=== PATIENT | female | born 1965 | race Two or more races ===

== ENCOUNTER 2020-08-01 09:33 | Emergency (ER) | payer OTHER ==
--- NOTE | 2020-08-01 10:27 | EDM.PDOC ---
ED HPI GENERAL MEDICAL PROBLEM - General Chief Complaint: General Stated Complaint: LIGHTHEADED/DIZZY/HEADACHE Time Seen by Provider: 08/01/20 09:44 Source of Information: Reports: Patient History Limitations: Reports: No Limitations - History of Present Illness INITIAL COMMENTS - FREE TEXT/NARRATIVE: 54-year-old female presents to the emergency department with complaints of mansfield dden onset severe headache in the base of her skull. Patient she states she was at work this morning when she developed a headache, dizziness, nausea, light sensitivity, and white spots in her vision and worsening tinnitus. States that the pain is constant at the base of her skull and she describes it as feeling like her head is going to explode. Patient states that she developed tinnitus approximately a year ago and has had intermittent headaches but has not seen her primary care physician to have this evaluated. She states that she does not have a history of migraine headache. She does not have a history of hypertension. Patient states her only medical history is asthma for which she takes a rescue inhaler as needed. She does admit to occasional marijuana use due to chronic back pain and sciatica. States that she last used about 24 hours ago. Posterior Headache Pain Score (Numeric/FACES): 8 - Related Data Allergies Allergy/AdvReac Type Severity Reaction Status Date / Time Penicillins Allergy Intermediate Hives Verified 08/01/20 09:47 animal dander Allergy Rash Verified 08/01/20 10:12 grass pollen Allergy Rash Verified 08/01/20 10:12 Influenza Virus Vaccines Allergy Anaphylactic Verified 08/01/20 10:12 Shock latex Allergy Hives Verified 08/01/20 10:12 Home Meds: Home Meds EPINEPHrine [Epinephrine] 0.3 mg IM ASDIRECTED PRN 08/01/20 [History] Levalbuterol Tartrate [Xopenex HFA] 45 mcg INH ASDIRECTED PRN 08/01/20 [History] Past Medical History HEENT History: Reports: Impaired Vision, Macular Degeneration Cardiovascular History: Reports: Syncope Respiratory History: Reports: Asthma BAIT MAN History: Reports: Musculoskeletal History: Reports: Back Pain, Chronic, Fracture Neurological History: Reports: Vertigo Endocrine/Metabolic History: Reports: Obesity/BMI 30+ Hematologic History: Reports: Anemia Dermatologic History: Reports: Eczema - Infectious Disease History Infectious Disease History: Reports: Chicken Pox Other Infectious Disease History: latent TB - Past Surgical History Other Musculoskeletal Surgeries/Procedures:: right foot surgery Oncologic Surgical History: Reports: Biopsy of Breast Social & Family History - Family History Family Medical History: No Pertinent Family History - Tobacco Use Tobacco Use Status *Q: Former Tobacco User Used Tobacco, but Quit: Yes Month/Year Tobacco Last Used: 05/1959 - Caffeine Use Caffeine Use: Reports: Coffee - Recreational Drug Use Recreational Drug Use: No ED ROS GENERAL - Review of Systems Review Of Systems: See Below Constitutional: Reports: Diaphoresis (with the onset of headache). Denies: Fever, Chills HEENT: Reports: Glasses, Vertigo, Vision Change (photophobia, "white spots in her vision") Respiratory: Reports: No Symptoms Cardiovascular: Reports: No Symptoms Endocrine: Reports: No Symptoms GI/Abdominal: Reports: No Symptoms : Reports: No Symptoms Musculoskeletal: Reports: No Symptoms Skin: Reports: No Symptoms Neurological: Reports: Dizziness (vertigo), Headache. Denies: Confusion, Numbness, Paresthesia, Seizure, Syncope, Tingling Psychiatric: Reports: No Symptoms Hematologic/Lymphatic: Reports: No Symptoms Immunologic: Reports: No Symptoms ED EXAM, GENERAL - Physical Exam Exam: See Below Exam Limited By: No Limitations General Appearance: Alert, WD/WN, Mild Distress Eye Exam: Bilateral Eye: EOMI Ears: Normal External Exam, Hearing Grossly Normal, Other (tinnitus) Nose: Normal Inspection Throat/Mouth: Normal Inspection, Normal Lips, Normal Voice, No Airway Compromise Head: Atraumatic, Normocephalic Neck: Normal Inspection, Supple, Non-Tender, Full Range of Motion Respiratory/Chest: No Respiratory Distress, Lungs Clear, Normal Breath Sounds, No Accessory Muscle Use, Chest Non-Tender Cardiovascular: Normal Peripheral Pulses, Regular Rate, Rhythm, No Edema, No Murmur Peripheral Pulses: 2+: Radial (L), Radial (R) GI/Abdominal: Normal Bowel Sounds, Soft, Non-Tender, No Distention (Female) Exam: Deferred Rectal (Female) Exam: Deferred Back Exam: Normal Inspection, Full Range of Motion Extremities: Normal Inspection, Normal Range of Motion, Non-Tender, No Pedal Edema, Normal Capillary Refill Neurological: Alert, Oriented, Normal Cognition. No: Normal Gait (unsteady-pt states that she has chronic back pain with sciatica on the left side) Psychiatric: Normal Affect, Normal Mood Skin Exam: Warm, Dry, Intact, Normal Color, No Rash Lymphatic: No Adenopathy Course - Vital Signs Text/Narrative:: 54 year old female with complaints of severe sudden onset headache at the base of her skull. 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 Associated symptoms are diaphoresis, photophobia, vertigo, white spots in her vision, nausea and feeling as though she is going to pass out. She denies any significant medical history other than asthma for which she takes a rescue inhaler as needed and a 1 year history of tinnitus. Complete neuro exam was unremarkable. Was unable to visualize the patients pupils however due to severe light sensitivity. Last Recorded V/S: Last Vital Signs Temp 97.2 F 08/01/20 09:43 Pulse 60 08/01/20 09:43 Resp 14 08/01/20 09:43 BP 135/71 08/01/20 09:43 Pulse Ox 98 08/01/20 09:43 - Orders/Labs/Meds Orders: Active Orders 24 hr Category Date Time Status Sodium Chloride 0.9% [Saline Flush] Med 08/01/20 10:01 Active 10 ml FLUSH ASDIRECTED PRN Saline Lock Insert [OM.PC] Stat Oth 08/01/20 10:01 Ordered Medication Orders Sodium Chloride (Sodium Chloride 0.9% 10 Ml Syringe) 10 ml FLUSH ASDIRECTED PRN PRN Reason: Keep Vein Open Last Admin: 08/01/20 11:09 Dose: 10 ml Documented by: ARCHIE Labs: Laboratory Tests 08/01/20 08/01/20 Range/Units 10:20 10:20 WBC 7.51 (3.98-10.04) K/mm3 RBC 5.29 H (3.98-5.22) M/mm3 Hgb 14.6 (11.2-15.7) gm/dl Hct 46.2 H (34.1-44.9) % MCV 87.3 (79.4-94.8) fl MCH 27.6 (25.6-32.2) pg MCHC 31.6 L (32.2-35.5) g/dl RDW Std Deviation 46.6 H (36.4-46.3) fL Plt Count 238 (182-369) K/mm3 MPV 10.8 (9.4-12.3) fl Neut % (Auto) 63.7 (34.0-71.1) % Lymph % (Auto) 23.7 (19.3-51.7) % [place] % (Auto) 7.1 (4.7-12.5) % Eos % (Auto) 5.1 (0.7-5.8) Baso % (Auto) 0.3 (0.1-1.2) % Neut # (Auto) 4.79 (1.56-6.13) K/mm3 Lymph # (Auto) 1.78 (1.18-3.74) K/mm3 [place] # (Auto) 0.53 H (0.24-0.36) K/mm3 Eos # (Auto) 0.38 H (0.04-0.36) K/mm3 Baso # (Auto) 0.02 (0.01-0.08) K/mm3 Sodium 142 (136-145) mEq/L Potassium 4.7 (3.5-5.1) mEq/L Chloride 105 (98-107) mEq/L Carbon Dioxide 30 (21-32) mEq/L Anion Gap 11.7 (5-15) BUN 10 (7-18) mg/dL Creatinine 0.8 (0.55-1.02) mg/dL Est Cr Clr Drug Dosing 59.96 mL/min Estimated GFR (MDRD) > 60 (>60) mL/min BUN/Creatinine Ratio 12.5 L (14-18) Glucose 95 (74-106) mg/dL Calcium 9.3 (8.5-10.1) mg/dL Magnesium 2.0 (1.8-2.4) mg/dl Total Bilirubin 0.3 (0.2-1.0) mg/dL AST 27 (15-37) U/L ALT 37 (14-59) U/L Alkaline Phosphatase 126 H (46-116) U/L Troponin I < 0.017 (0.00-0.056) ng/mL C-Reactive Protein 1.2 H* (<1.0) mg/dL Total Protein 8.2 (6.4-8.2) g/dl Albumin 3.7 (3.4-5.0) g/dl Globulin 4.5 gm/dL Albumin/Globulin Ratio 0.8 L (1-2) Meds: Medications Generic Name Dose Route Start Last Admin Trade Name Deny PRN Reason Stop Dose Admin Sodium Chloride 10 ml 08/01/20 10:01 08/01/20 11:09 Sodium Chloride 0.9% 10 Ml Syringe FLUSH 10 ml ASDIRECTED PRN Administration Keep Vein Open Discontinued Medications Generic Name Dose Route Start Last Admin Trade Name Deny PRN Reason Stop Dose Admin Diphenhydramine HCl 25 mg 08/01/20 10:32 08/01/20 11:05 Diphenhydramine 50 Mg/Ml Sdv IVPUSH 08/01/20 10:33 25 mg ONETIME ONE Administration Ketorolac Tromethamine 30 mg 08/01/20 10:32 08/01/20 11:07 Ketorolac 30 Mg/Ml Sdv IVPUSH 08/01/20 10:33 30 mg ONETIME ONE Administration Metoclopramide HCl 5 mg 08/01/20 10:32 08/01/20 11:03 Metoclopramide 10 Mg/2 Ml Sdv IVPUSH 08/01/20 10:33 5 mg ONETIME ONE Administration - Re-Assessments/Exams Free Text/Narrative Re-Assessment/Exam: 08/01/20 10:[address] radiologist impression: Nothing acute is seen on noncontrast head CT. 08/01/20 10:55 I have ordered benadryl, toradol, and reglan. I feel the patient is having a migraine so we will see if this helps. 08/01/20 11:41 Labs reveal a WBC of 7.51, hemoglobin 14.6, hematocrit 46.2, chemistry is essentially unremarkable other than alk phos 126, troponin less than 0.017, C- reactive protein 1.2. Patient states that headache pain, vertigo, photophobia and tinnitus are significantly better. We will allow her to rest for a bit longer and then have the nursing staff ambulate her as they did stay she was kind of unsteady on her feet prior to being medicated. 08/01/20 12:02 Nursing staff ambulated the patient and report that she is much more steady on her feet and states that she is ready to go home. Pt will be discharged with recommendations that she follow up with her primary care provider in the next couple of weeks. Departure - Departure Time of Disposition: 12:03 Disposition: Home, Self-Care 01 Condition: Good Clinical Impression: Migraine Qualifiers: Migraine type: with aura Status migrainosus presence: without status migrainosus Intractability: not intractable Qualified Code(s): G43.109 - Migraine with aura, not intractable, without status migrainosus - Discharge Information Instructions: Migraine Headache, [id number] Referrals: PCP,None [Primary Care Provider] - Luna Escobar PA-C [Ordering Only Provider] - Forms: ED Department Discharge Additional Instructions: You were seen in the emergency department today with complaints of sudden onset severe headache with dizziness, worsening ringing in the ears, nausea, and sensitivity to light. Labs and a CT of the head were completed to rule out stroke and these were negative. You likely had a migraine headache. You were given medications to treat them and the headache was significantly better after treatment. Ambulation was also more steady after treatment. Recommend that you follow up with Luna Escobar in the next couple of weeks for the evaluation of your ringing in your ears as you likely need to see an ENT specialist for evaluation. Should your condition worsen or change, do not hesitate to return to the ED. Sepsis Event Note (ED) - Evaluation Sepsis Screening Result: No Definite Risk - Focused Exam Vital Signs: Vital Signs Temp Pulse Resp BP Pulse Ox 08/01/20 09:43 97.2 F 60 14 135/71 98 - My Orders Last 24 Hours: My Active Orders 08/01/20 10:01 Sodium Chloride 0.9% [Saline Flush] 10 ml FLUSH ASDIRECTED PRN Saline Lock Insert [OM.PC] Stat - Assessment/Plan Last 24 Hours: My Active Orders 08/01/20 10:01 Sodium Chloride 0.9% [Saline Flush] 10 ml FLUSH ASDIRECTED PRN Saline Lock Insert [OM.PC] Stat
--- NOTE | 2020-08-01 10:37 | CT ---
Head CT Technique: Multiple axial sections through the brain were obtained. Intravenous contrast was not utilized. Reconstructed coronal and sagittal images were obtained. Findings: Ventricles along with basal cisterns and sulci over the convexities are within normal limits for the patient's age. No abnormal parenchymal densities are seen. No evidence of intracranial hemorrhage. No midline shift or mass-effect is appreciated. Bone window settings were reviewed. Visualized mastoid and paranasal sinuses show nothing acute. No acute calvarial finding is appreciated. Impression: 1. Nothing acute is seen on noncontrast head CT exam. Diagnostic code #1
[2020-08-01] MEDS: Metoclopramide 10 MG/2 ML SDV IVPUSH ONE (11:03)
[2020-08-01] MEDS: diphenhydrAMINE 50 MG/ML SDV IVPUSH ONE (11:05)
[2020-08-01] MEDS: Ketorolac 30 MG/ML SDV IVPUSH ONE (11:07)
[2020-08-01] MEDS: Sodium Chloride 0.9% 10 ML Syringe FLUSH PRN (11:09)
== END 2020-08-01 12:38 | disposition home or self-care (01) ==
LOC: JD.ED 09:33
DX: G43.109 Migraine with aura, not intractable, without status migrainosus (principal); J45.909 Unspecified asthma, uncomplicated; E66.9 Obesity, unspecified; Z88.0 Allergy status to penicillin; Z91.048 Other nonmedicinal substance allergy status; Z88.7 Allergy status to serum and vaccine; Z91.040 Latex allergy status; Z87.891 Personal history of nicotine dependence
CPT/HCPCS: 36415; 70450; 80053; 83735; 84484; 85025; 86140; 96374; 96375; 99284; J1200; J1885; J2765; 99283